=== PATIENT | female | born 1950 | race Hispanic/Latino ===

== ENCOUNTER → 2022-01-20 | Outpatient (CLI) | payer MEDICARE | LOC: RAD 14:32 | PROVIDERS: ATTEND Internal Medicine | DX: M47.812 Spondylosis without myelopathy or radiculopathy, cervical region (principal) | CPT/HCPCS: 72040 ==

== ENCOUNTER 2024-10-18 17:53 | Inpatient (IN) | payer MEDICARE ==
[~2024-10-18] VITALS: Ht 162.6 cm; Wt 67.7 kg
[2024-10-18] MEDS: SODIUM CHLORIDE 0.9% 1000ML 1,000 ML IV ONE (18:58)
[2024-10-18] MEDS ORDERED: SODIUM CHLORIDE FLUSH 10 ML SYR INJ PRN (21:00)
[2024-10-18 21:56] VITALS: PULSE 68; RESP 18; TEMP 98.2
[2024-10-18 22:30] VITALS: BP 141/69; PULSE 68; RESP 18; TEMP 98; O2SAT 100
[2024-10-19] MEDS ORDERED: ROSUVASTATIN CA20 MG PO (00:43)
[2024-10-19] MEDS ORDERED: CETIRIZINE HCL10 MG PO (00:43)
[2024-10-19] MEDS ORDERED: PANTOPRAZOLE SO40 MG PO (00:43)
[2024-10-19] MEDS ORDERED: INSULIN LI100 UNIT/3 (00:43)
[2024-10-19] MEDS ORDERED: NOVOLOG MI100 UNIT/1 (00:43)
[2024-10-19] MEDS ORDERED: BUSPIRONE HCL5 MG PO (00:43)
[2024-10-19] MEDS ORDERED: ONE TOUCH VERI1 EACH (00:43)
[2024-10-19] MEDS ORDERED: FLUTICASONE PRO16 GM (00:43)
[2024-10-19] MEDS ORDERED: METFORMIN HCL500 M1 PO (00:43)
[2024-10-19] MEDS ORDERED: LOSARTAN POTASS25 MG PO (00:43)
[2024-10-19] MEDS ORDERED: NANO 2ND GEN P1 EACH (00:43)
[2024-10-19] MEDS: ACETAMINOPHEN 325 MG TAB PO PRN (01:07)
[2024-10-19 04:00] VITALS: BP 141/69; PULSE 68; RESP 18; TEMP 98; O2SAT 100
[2024-10-19 06:33] LABS: CHOL/HDL RATIO 5.1 (3.0-3.6)
[2024-10-19 06:40] LABS: TROPONIN I 0.008 ng/mL (0-0.300)
[2024-10-19 07:59] VITALS: BP 136/43; PULSE 60; RESP 18; TEMP 98.1; O2SAT 100
[2024-10-19 08:46] VITALS: BP 136/43; PULSE 60; RESP 18; TEMP 98.1; O2SAT 100
[2024-10-19] MEDS ORDERED: HYDRALAZINE HCL 25 MG TAB PO PRN (09:00)
[2024-10-19] MEDS ORDERED: NON-FORMULARY MEDICATION (Rosuvastatin Calcium 1 TAB) PO SCH (09:00)
[2024-10-19] MEDS ORDERED: ONDANSETRON HCL INJ 2MG/ML 2ML 2 MG/ML VIAL IV PRN (09:00)
[2024-10-19] MEDS: INSULIN LISPRO 100 UNIT/1 ML 3ML VIAL SQ SCH ×2 (09:17→12:31)
[2024-10-19] MEDS: INSULIN ASPART 70/30 100 UNITS/ML VIAL SC SCH (09:18)
[2024-10-19] MEDS: BUSPIRONE HCL 5 MG TAB PO SCH (09:19)
[2024-10-19] MEDS: LOSARTAN POTASSIUM 25 MG TAB PO SCH (09:19)
[2024-10-19] MEDS: PANTOPRAZOLE SOD 40 MG TABEC PO SCH (09:19)
[2024-10-19] MEDS: GABAPENTIN 100 MG CAP PO SCH (09:20)
[2024-10-19 12:11] VITALS: BP 146/71; PULSE 76; RESP 18; TEMP 97.6; O2SAT 100
[2024-10-19] MEDS: SODIUM CHLORIDE 0.9% 250ML 250 ML ONE (12:28)
[2024-10-19 12:41] LABS: COLOR,URINE YELLOW (YELLOW)
[2024-10-19 12:42] LABS: BACTERIA,URINE FEW /HPF; BILIRUBIN,URINE NEGATIVE (NEGATIVE); CLARITY,URINE CLEAR (CLEAR); EPITHELIAL CELLS,URINE FEW /LPF; GLUCOSE, URINE NEGATIVE (NEGATIVE); KETONES,URINE NEGATIVE (NEGATIVE); LEUKOCYTE ESTERASE ,URINE NEGATIVE (NEGATIVE); NITRITE,URINE NEGATIVE (NEGATIVE); PH,URINE 6 (5 - 7); PROTEIN,URINE DIPSTICK NEGATIVE (NEGATIVE); RBC,URINE 0-5 /HPF (0-5); URINE UROBILINOGEN 0.2 mg/dL (0.2 - 1); WBC,URINE (MAN) 0-5 /HPF (0-5)
[2024-10-19 13:17] LABS: TROPONIN I 0.008 ng/mL (0-0.300)
[2024-10-19 15:55] VITALS: BP 126/49; PULSE 63; RESP 18; TEMP 98.2; O2SAT 100
[2024-10-19 20:00] VITALS: BP 126/49; PULSE 63; RESP 18; TEMP 98.2; O2SAT 100
[2024-10-19] MEDS: CRESTOR 10MG PO SCH (21:11)
[2024-10-19] MEDS: TRAMADOL HCL 50 MG TAB PO PRN (21:12)
[2024-10-19] MEDS: TEMAZEPAM 15 MG CAP PO PRN (21:12)
[2024-10-20 05:52] LABS: BASOPHILS % 0.8 % (0.0-1.0); EOSINOPHILS # (AUTO) 0.2 (0.0-0.4); EOSINOPHILS % 4.3 % (0.0-6.0); HEMATOCRIT 29.8 % (34.2-44.1); HEMOGLOBIN 10.1 g/dL (12.0-16.0); LYMPHOCYTES # (AUTO) 1.6 (1.0-3.2); LYMPHOCYTES % 32.7 % (18.0-39.1); MEAN CORPUSCULAR HEMOGLOBIN 28.4 pg (28-32); MEAN CORPUSCULAR HGB CONC 33.9 g/dL (31-35); MEAN CORPUSCULAR VOLUME 83.7 fL (81-99); MONOCYTES # (AUTO) 0.6 (0.2-0.8); MONOCYTES % 12.6 % (4.4-11.3); NEUTROPHILS # (AUTO) 2.4 (2.1-6.9); NEUTROPHILS % 49.2 % (38.7-80.0); PLATELET COUNT 211 x10e3/uL (140-360); RED BLOOD COUNT 3.56 x10e6/uL (3.6-5.1); RED CELL DISTRIBUTION WIDTH 13.4 % (11.7-14.4); WHITE BLOOD COUNT 4.92 x10e3/uL (4.8-10.8)
[2024-10-20 06:24] LABS: ANION GAP 11.8 mmol/L (8-16); CALCIUM 8.6 mg/dL (8.4-10.2); CREATININE, SERUM 0.99 mg/dL (0.57-1.11); POTASSIUM 3.8 mmol/L (3.5-5.1)
[2024-10-20 06:46] LABS: TROPONIN I 0.007 ng/mL (0-0.300)
[2024-10-20 06:50] VITALS: BP 126/49; RESP 18; TEMP 98.2; O2SAT 100
[2024-10-20 08:00] VITALS: BP_SYST 117; BP_SYST 142; BP_DIAS 54; BP_DIAS 58; PULSE 67; PULSE 70; RESP 18; RESP 19; TEMP 98.9; TEMP 99.2; O2SAT 98; O2SAT 99
[2024-10-20 10:48] LABS: BASOPHILS % (MANUAL) 1 % (0-1.5); EOSINOPHILS % (MANUAL) 2 % (0-7); LYMPHOCYTES % (MANUAL) 30 % (19-48); MONOCYTES % (MANUAL) 15 % (3.4-9.0); NEUTROPHILS % (MANUAL) 51 % (40-74); PLATELET ESTIMATE ADEQUATE; PLATELET MORPHOLOGY COMMENT NORMAL; RBC MORPHOLOGY COMMENT NORMAL; REACTIVE LYMPHOCYTES 1
[2024-10-20 12:00] VITALS: BP 119/45; PULSE 59; RESP 18; TEMP 98.1; O2SAT 100
[2024-10-20] MEDS: INSULIN LISPRO 100 UNIT/1 ML 3ML VIAL SQ SCH (17:06)
[2024-10-20] MEDS: INSULIN ASPART 70/30 100 UNITS/ML VIAL SC SCH (17:07)
[2024-10-20 17:38] VITALS: BP 108/54; PULSE 57; RESP 18; TEMP 98; O2SAT 100
[2024-10-20 20:00] VITALS: BP 119/48; PULSE 58; RESP 18; TEMP 99.5; O2SAT 100
[2024-10-20 22:00] VITALS: BP 119/48; PULSE 58; RESP 18; TEMP 99.5; O2SAT 100
[2024-10-21] VITALS (7 sets, daily range): BP systolic 110–159; BP diastolic 45–61; PULSE 50–61; RESP 18–19; TEMP 97.9–99.1; O2SAT 95–100
[2024-10-21] MEDS: DEXTROSE 50% SYRINGE 50 ML IV PRN (14:28)
[2024-10-22] VITALS: BP 125/55; PULSE 57; RESP 18; TEMP 98.2; O2SAT 98
[2024-10-22 04:00] VITALS: BP 129/56; PULSE 57; RESP 18; TEMP 98.2; O2SAT 99
[2024-10-22 09:13] VITALS: BP 148/54; PULSE 55; RESP 18; TEMP 98; O2SAT 100
[2024-10-22 09:30] VITALS: BP 148/54; PULSE 55; RESP 18; TEMP 98; O2SAT 100
== END 2024-10-22 14:00 | disposition home or self-care (01) | DRG 551 ==
LOC: FSED 18:06 → ERHOLD 20:54 → MED/SURG 22:40 → OBSVTOIN 10-19 08:50
PROVIDERS: ADMIT Internal Medicine; ATTEND Internal Medicine
DX: M50.10 Cervical disc disorder with radiculopathy, unspecified cervical region (principal); G92.8 Other toxic encephalopathy; N39.0 Urinary tract infection, site not specified; M47.22 Other spondylosis with radiculopathy, cervical region; M26.622 Arthralgia of left temporomandibular joint; I10 Essential (primary) hypertension; F41.9 Anxiety disorder, unspecified; F43.10 Post-traumatic stress disorder, unspecified; F42.9 Obsessive-compulsive disorder, unspecified; R35.0 Frequency of micturition; M81.0 Age-related osteoporosis without current pathological fracture; F12.90 Cannabis use, unspecified, uncomplicated; E27.8 Other specified disorders of adrenal gland; F41.0 Panic disorder [episodic paroxysmal anxiety]; J98.01 Acute bronchospasm; E11.65 Type 2 diabetes mellitus with hyperglycemia; R41.0 Disorientation, unspecified; G31.89 Other specified degenerative diseases of nervous system; E78.5 Hyperlipidemia, unspecified; Z79.4 Long term (current) use of insulin; Z98.1 Arthrodesis status
CPT/HCPCS: 36415; 70450; 70486; 70551; 71046; 72141; 74176; 80048; 80053; 80061; 80307; 81001; 81003; 82550; 82607; 82746; 82948; 83036; 84443; 84484; 85025; 87086; 93005; 95819; 96372; 99252; 99284; G0378; J0696; J1815; J2470; J7030; J7050; J7799